=== PATIENT | female | born 1955 | race Hispanic/Latino ===

== ENCOUNTER → 2023-06-08 | Outpatient (CLI) | payer OTHER | END | disposition home or self-care (01) | LOC: RAH 09:46 | PROVIDERS: ATTEND Physician Assistant Medical | DX: N63.25 Unspecified lump in the left breast, overlapping quadrants (principal); R92.8 Other abnormal and inconclusive findings on diagnostic imaging of breast | CPT/HCPCS: 76641; 77065; G0279; 77061 ==

== ENCOUNTER 2025-06-05 17:43 | Emergency (ER) | payer OTHER ==
[~2025-06-05] VITALS: Ht 157.5 cm; Wt 61.2 kg
[2025-06-05 18:00] VITALS: BP 70/44; PULSE 78; RESP 18; TEMP 97.8; O2SAT 78
--- NOTE | 2025-06-05 18:09 | ERN ---
ED Note History of Present Illness Stated Complaint: LACERATION Chief Complaint: Laceration/Avulsion Time Seen by MD: 17:50 Dictation: PATIENT IS A 70-YEAR-OLD FEMALE HERE WITH A AN PARTIAL AMPUTATION OF HER DISTAL LEFT INDEX FINGER WITH A CHAIN SAW. SHE STATES SHE WAS HELPING HER SON CUT DOWN A TREE IN HER YD WITH A CHAIN SAW WHEN IT HIT HER FINGER. SHE HAS A PARTIAL TIP AMPUTATION. LAST TETANUS SHOT IS UNKNOWN NO ALLERGIES MEDICATIONS. PATIENT WAS IN SEVERE PAIN AT THE BEDSIDE AND DIGITAL BLOCK WAS PERFORMED FOR PAIN. Allergies: Coded Allergies: No Known Drug Allergies (Unverified Allergy, Unknown, 06/05/25) Past Medical History Past Medical History: High Cholesterol Surgical History: None History: Not Applicable RN Note Reviewed/Agreed w/PFSH: Yes Review of System Dictation CONSTITUTIONAL: NEGATIVE EXCEPT FOR HPI HEAD/FACE: NEGATIVE EXCEPT FOR HPI EENT: NEGATIVE EXCEPT FOR HPI RESPIRATORY: NEGATIVE EXCEPT FOR HPI GASTROINTESTINAL/ABDOMINAL: NEGATIVE EXCEPT FOR HPI GENITOURINARY: NEGATIVE EXCEPT FOR HPI MUSCULOSKELETAL: NEGATIVE EXCEPT FOR HPI PARTIAL AMPUTATION DISTAL LEFT 2ND PHALANX INTEGUMENTARY: NEGATIVE EXCEPT FOR HPI NEUROLOGICAL/PSYCH: NEGATIVE EXCEPT FOR HPI HEMATOLOGIC/LYMPHATIC: NEGATIVE EXCEPT FOR HPI ALL SYSTEMS NEGATIVE, EXCEPT NOTED ABOVE. 13 POINT REVIEW OF SYSTEMS ASSESSED AND ALL NEGATIVE EXCEPT FOR ABOVE. Initial Vital Sign VS Vital Signs Date Time Temp Pulse Resp B/P (MAP) Pulse Ox O2 Delivery O2 Flow Rate FiO2 06/05/25 17:46 97.9 78 18 70/44 97 06/05/25 18:00 Room Air* 0 21 Physical Exam Dictation VITAL SIGNS REVIEWED GENERAL APPEARANCE: ALERT, ORIENTED X 3, SEVERE ACUTE DISTRESS, WELL DEVELOPED, NOURISHED. HEAD AND FACE: NON-TRAUMATIC. EYES: PERRL, PINK CONJUNCTIVAS, EYELID NO TRAUMA, ANTERIOR CHAMBER WITH ARCUS SENILIS. EARS: PINNAS INTACT AND NO SIGNS OF TRAUMA OR ERYTHEMA EAR CANALS CLEAR AND NO DISCHARGE TM NO ERYTHEMA NOSE: NO DISCHARGE, NO BLEEDING. OROPHARYNX: MOUTH NORMAL, TONGUE PINK, PHARYNX CLEAR,NO ERYTHEMA, TONSILS NO EXUDATES, NO ABSCESSES NOTED, MUCOUS MEMBRANE MOIST NECK: SUPPLE, NON-TENDER, NO THYROMEGALY, NO MASSES, NO JVD, NO BRUITS BREAST:DEFERRED CHEST:NO TENDERNESS, NO CREPITUS, NO PARADOXICAL MOVEMENT, NO RETRACTIONS LUNGS:CLEAR, WELL-VENTILATED, SYMMETRIC, NO RALES, NO WHEEZING, NO RHONCHI, NO STRIDOR, GOOD BREATH SOUNDS BILATERALLY HEART: REGULAR RATE, REGULAR RHYTHM, NO MURMUR, NO GALLOPS VASCULAR: NO PERIPHERAL EDEMA, ABDOMEN: SOFT, POSITIVE BOWEL SOUNDS, NONDISTENDED, NO GUARDING, NONTENDER, NO REBOUND, NO MASSES NO HEPATOMEGALY, NO SPLENOMEGALY, NO BUSTILLOS'S SIGN, NO HERNIAS. RECTAL: DEFERRED GENITAL: DEFERRED NEUROLOGICAL: NORMAL SPEECH, MOTOR FUNCTION INTACT, SENSORY FUNCTION INTACT MUSCULOSKELETAL: NECK NONTENDER, FULL RANGE OF MOTION, BACK NONTENDER, FULL RANGE OF MOTION, EXTREMITIES: PARTIAL AMPUTATION TO DISTAL PHALANX LEFT 2ND FINGER. NAIL IS INTACT NO ACTIVE BLEEDING. SKIN: COLOR PINK, DRY, NO TURGOR, NO RASH, NO LACERATIONS, NO ABRASIONS, NO CONTUSIONS. LYMPHATIC: DEFERRED Results (Laboratory/Radiology) Laboratory/Radiology X-ray demonstrates small tuft fracture. Labs Reviewed?: Yes ED Course ED Course Orders Procedure Category Date Status Time Saline Lock Iv CPOE 06/05/25 Transmitted 18:02 Hand 3+Vws Lt RAD 06/05/25 Resulted 18:02 Cefazolin Sodium PHA 06/05/25 Complete (Ancef) 18:02 Lidocaine Hcl 1% 20ml PHA 06/05/25 In Process Vial (Lidocaine Hc 18:02 Neomy PHA 06/05/25 Complete Sulf/Bacitra/Polymyxin 18:30 Tetanus,Diphtheria PHA 06/05/25 Complete Tox [Adult] (Diphther 18:30 Acetaminophen With PHA 06/05/25 Complete Codeine (Tylenol-Code 18:30 Finger Splint ROCAEL 06/05/25 In Process 19:00 Current Medications Medications (Trade) Dose Ordered Sig/Paco Route PRN Reason Start Time Stop Time Status Last Admin Dose Admin Acetaminophen/ Codeine Phosphate (TYLenol-coDEINE TAB) 2 tab ONCE ONCE PO 06/05/25 18:30 06/05/25 18:31 DC 06/05/25 18:30 Cefazolin Sodium (Ancef) 2 gm ONCE STAT IVPB 06/05/25 18:02 06/05/25 18:10 DC 06/05/25 18:29 Lidocaine HCl (Lidocaine HCl 1% 20ml Vial) 10 ml ONCE STAT INJ 06/05/25 18:02 06/05/25 18:10 DC 10/1/25 18:30 Neomycin/ Polymyxin/ Bacitracin (Triple Antibiotic Ointment) 1 appl ONCE ONCE TP 06/05/25 18:30 06/05/25 18:31 DC Tetanus/ Diphtheria Toxoids Adsorbed (DiphthERIA-teTANUS TOXOID [ADULT]/ DECAVAC) 0.5 ml ONCE ONCE IM 06/05/25 18:30 06/05/25 18:31 DC 06/05/25 18:28 Vital Signs Date Time Temp Pulse Resp B/P (MAP) Pulse Ox O2 Delivery O2 Flow Rate FiO2 06/05/25 18:00 97.9 78 18 70/44 78 Room Air* 0 21 06/05/25 17:46 97.9 78 18 70/44 97 1915/patient is aware that she has a small tuft fracture. She was given Ancef2 g IV, [place] given for pain, tetanus shot was updated. Finger splint was applied by Jovie with distal neurovascular CMS intact post placement Patient will be referred to Dr. Farhad Diaz/orthopedic surgeon for follow up Medical Decision Making MDM Medical discharge making based on x-ray of left hand to rule out fracture Small tuft fracture noted on x-ray Tetanus shot was updated Ancef2 g given IV piggyback Analgesia was provided Fingertip was sutured in place Metal splint placed by tech and patient referred to orthopedic surgeon Procedure Procedure Dictation: 180/PROCEDURE EXPLAINED TO PATIENT SHE AGREED TO PROCEED PREPPED LEFT MIDDLE PHALANX WITH ALCOHOL SWABS 2 ML 1% LIDOCAINE PAIN FOR DIGITAL BLOCK PATIENT TOLERATED WELL NO ACTIVE BLEEDING AT THIS TIME 1850/procedure explained to patient she agreed to proceed Patient has 2 cm laceration proximal nail. Middle phalanx was prepped aseptically 2.5 mL lidocaine 1% plain used for digital block Fingertip was irrigated with a approximately 25 mL of wound cleanser. Sharp debridement was used to take off some of the jagged and torn skin Fingertip was replaced Seven simple interrupted 4-0 Prolene sutures were used Single-layer closure Patient tolerated well No active bleeding DX & DISP Disposition: Discharge Departure Impression: Primary Impression: Open fracture of tuft of distal phalanx of finger Condition: Stable Scripts Mupirocin (Bactroban 2% Oint) 2 % Oint 1 APPL TP TID for 5 Days, #15 GM 0 Refills apply to affected area(s) Prov: NURY BASS STEWARDING SUPERVISOR 06/05/25 Acetaminophen with Codeine (Acetaminophen-Cod #3 Tablet) 300 Mg-30 Mg Tablet 1 TAB PO Q6H PRN for Moderate to severe pain, #15 TAB 0 Refills 1-2 tablets by mouth every 6 hours as needed for moderate to severe pain. Prov: NURY BASS STEWARDING SUPERVISOR 06/05/25 Cephalexin (Cephalexin) 500 Mg Tablet 1 TAB PO QID for 10 Days, #40 TAB 0 Refills Prov: NURY BASS STEWARDING SUPERVISOR 06/05/25 Additional Instructions: Follow-up with primary care provider in 1 to 2 days. Take medications as directed here in the emergency room. Okay to continue home medications unless otherwise discussed during your visit in the emergency room today. Return to your nearest emergency room if symptoms worsen or if there is no improvement. Call 911 if you need immediate assistance. Take Tylenol or Motrin [id number] as needed and if no contraindications are present. Increase oral hydration. A wound culture or urine culture was ordered here in the emergency room department please follow-up with primary care provider and advise them to get repeat ports from our facility. If you had any Khoi wrap/splints t hat were applied here, please do not remove them until you see your primary care or specialty. Keep suture repair clean and dry until cleared by orthopedic surgeon, call for an appointment tomorrow. Apply Bactroban ointment3 times a day for five days with dressing. Take antibiotics as directed until gone. Sutures out in 10-14 days Referrals: TL CAMERON (PCP) FARHAD DIAZ MD Time of Disposition: 19:18 I have reviewed the case, and I agree with, Diagnosis and Plan NURY BASS NP Jun 05, 2025 18:09
[2025-06-05] MEDS: LIDOCAINE HCL 1% 20 ML VIAL INJ STA (18:30)
--- NOTE | 2025-06-05 18:56 | HMCIMG ---
EXAM: XR left hand, 3 View. CLINICAL HISTORY: 70-year-old female partial amputation. COMPARISON: None provided. FINDINGS: BONES: Transverse fracture at the base of the distal phalanx second digit. JOINTS: No dislocation. The joint spaces are normal. SOFT TISSUES: Soft tissue edema. Focal laceration of the distal tuft soft tissues of the second digit. Correlate clinically. IMPRESSION: 1. Transverse fracture at the base of the distal phalanx of the second digit with soft tissue edema and focal laceration of the distal tuft soft tissues; correlate clinically. /[place]
[2025-06-05] MEDS: NEOMY SULF/BACITRA/POLYMYXIN B 1 EACH PACKET TP ONE (19:09)
[2025-06-05] MEDS ORDERED: ACET-2079 PO (19:20)
[2025-06-05] MEDS ORDERED: CEPH500T PO (19:20)
[2025-06-05] MEDS ORDERED: MUPI22O TP (19:20)
== END 2025-06-05 19:36 | disposition home or self-care (01) ==
LOC: EDH 17:43
DX: S62.631B Displaced fracture of distal phalanx of left index finger, initial encounter for open fracture (principal); E78.00 Pure hypercholesterolemia, unspecified; W29.3XXA Contact with powered garden and outdoor hand tools and machinery, initial encounter; Y93.89 Activity, other specified; Y92.89 Other specified places as the place of occurrence of the external cause; Y99.8 Other external cause status
CPT/HCPCS: 99284; 96365; 90714; 73130; 90471; 29130; J0690; 12001